=== PATIENT | male | born 1965 | race Caucasian/White ===

== ENCOUNTER 2016-11-06 01:54 | Inpatient (IN) | payer OTHER ==
[2016-11-06] MEDS ORDERED: ZOFRAN INJ 4 MG VIAL ONE ×6 (02:19→16:41)
[2016-11-06] MEDS ORDERED: ZOFRAN INJ 4 MG VIAL IVP ONE (02:23)
[2016-11-06] MEDS: NORMODYNE INJ 20 MG VIAL IVP PRN ×9 (02:27→04:56)
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
[2016-11-06] MEDS ORDERED: NITROSTAT SL ONE (03:55)
[2016-11-06] MEDS ORDERED: NITROSTAT SL PRN (03:57)
[2016-11-06] MEDS ORDERED: ZOFRAN INJ 4 MG VIAL 16 MG, ATIVAN INJ 2 MG VIAL 1 MG, DECADRON INJ 10 MG in NS 50 ML I... IV ONE (04:01)
[2016-11-06] MEDS ORDERED: DECADRON INJ ONE (04:03)
[2016-11-06] MEDS ORDERED: NS 50 ML IV 50 ML IV ONE ×2 (04:04→12:21)
[2016-11-06] MEDS ORDERED: NS 250 ML IV 250 ML IV ONE ×2 (04:04→06:45)
[2016-11-06] MEDS ORDERED: ATIVAN INJ 2 MG VIAL ONE ×2 (04:04→12:22)
[2016-11-06 06:32] LABS: BASOPHILS % (AUTO) 0.4 % (0.2-1.0); HEMATOCRIT 35.9 % (42.0-54.0); LYMPHOCYTES # (AUTO) 0.5 X10^3/uL (1.3-2.9); LYMPHOCYTES % (AUTO) 4.2 % (21.0-51.0); MEAN CORPUSCULAR HEMOGLOBIN 28.3 pg (27.0-34.0); MEAN CORPUSCULAR HGB CONC 33.6 g/dL (33.0-35.0); MEAN CORPUSCULAR VOLUME 84.2 fL (80.0-100.0); MEAN PLATELET VOLUME 7.7 fL (7.4-11.0); MONOCYTES # (AUTO) 0.1 x10^3/uL (0.3-0.8); NEUTROPHILS # (AUTO) 10.4 x10^3/uL (2.2-4.8); NEUTROPHILS % (AUTO) 94.4 % (42.0-75.0); PLATELET COUNT 289 X10^3/uL (150.0-450.0); RED BLOOD COUNT 4.26 X10^6/uL (4.7-6.0); RED CELL DISTRIBUTION WIDTH 13.9 % (11.6-16.5); WHITE BLOOD COUNT 11.1 X10^3/uL (3.6-10.0)
[2016-11-06] MEDS ORDERED: NORMODYNE INJ 100 MG VIAL ONE (06:45)
[2016-11-06 06:50] LABS: PLATELET MORPHOLOGY COMMENT NORMAL (NORMAL)
[2016-11-06 06:55] LABS: ALBUMIN 2.9 g/dL (3.4-5.0); CALCIUM 7.8 mg/dL (8.5-10.1); CARBON DIOXIDE 21.4 mmol/L (21-32); COR CA(FOR HYPOALB) 8.7 mg/dL (8.5-10.1); CREATININE 3.56 mg/dL (0.70-1.30); TOTAL PROTEIN 6.3 g/dL (6.4-8.2)
[2016-11-06] MEDS: NORMODYNE INJ 100 MG VIAL 250 MG in NS 250 ML IV 200 ML IV PRN ×6 (06:57→17:20)
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
[2016-11-06] MEDS: NS 1000 ML 1,000 ML IV SCH ×2 (08:00→20:05)
[2016-11-06] MEDS ORDERED: ZOFRAN INJ 4 MG VIAL IVP PRN (08:44)
[2016-11-06] MEDS ORDERED: GLUCOPHAGE PO SCH (09:00)
[2016-11-06] MEDS ORDERED: ZESTRIL TAB 20 MG ONE ×2 (09:33→19:39)
[2016-11-06] MEDS: ALBUMIN HUMAN 25%- 100ML 100 ML IV SCH (09:38)
[2016-11-06] MEDS: ZESTRIL TAB 20 MG PO SCH ×2 (09:39→20:00)
[2016-11-06 10:45] VITALS: BMI 27.4
[2016-11-06] MEDS ORDERED: ZOFRAN INJ 4 MG VIAL 16 MG, ATIVAN INJ 2 MG VIAL 1 MG in NS 50 ML IV 50 ML IV PRN (10:58)
[2016-11-06 11:01] LABS: BILIRUBIN,URINE NEGATIVE (NEGATIVE); BLOOD/HEMOGLOBIN,URINE 4+ (NEGATIVE); GLUCOSE, URINE 4+ (NEGATIVE); KETONES,URINE NEGATIVE (NEGATIVE); LEUKOCYTE ESTERASE ,URINE NEGATIVE (NEGATIVE); NITRITES,URINE NEGATIVE (NEGATIVE); PROTEIN,URINE 4+ (NEGATIVE); UROBILINOGEN,URINE NORMAL (NORMAL)
[2016-11-06 11:09] LABS: APPEARANCE,URINE CLEAR (CLEAR); BACTERIA,URINE TRACE /HPF (NEGATIVE); COLOR,URINE YELLOW (YELLOW); SQUAMOUS EPITHELIAL CELL,UR MODERATE /HPF (NEGATIVE)
[2016-11-06] MEDS: HumuLIN R SUBCUT PRN ×2 (12:06→16:44)
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
[2016-11-06 15:13] LABS: CKMB % 0.9 % (<4)
[2016-11-06 15:17] LABS: CREATINE KINASE MB 5.5 ng/mL (0-4.0)
[2016-11-06 15:18] LABS: TROPONIN I 1.83 ng/mL (0-1.5)
[2016-11-06] MEDS: ZOFRAN INJ 4 MG VIAL IVP PRN (16:46)
[2016-11-06 20:28] LABS: CKMB % 0.7 % (<4)
[2016-11-06 20:30] LABS: CREATINE KINASE MB 5.6 ng/mL (0-4.0); TROPONIN I 1.71 ng/mL (0-1.5)
[2016-11-06] MEDS ORDERED: NORVASC TAB 5 MG PO SCH (21:00)
[2016-11-06] MEDS: SNACK - Diabetic Appropriate PO SCH (21:36)
[2016-11-06 23:21] LABS: CKMB % 0.7 % (<4)
[2016-11-06 23:23] LABS: CREATINE KINASE MB 5.4 ng/mL (0-4.0); TROPONIN I 1.7 ng/mL (0-1.5)
[2016-11-07] MEDS: NS 1000 ML 1,000 ML IV SCH ×4 (01:20→20:20)
[2016-11-07 03:35] LABS: CKMB % 0.6 % (<4); TROPONIN I 1.49 ng/mL (0-1.5)
[2016-11-07 03:36] LABS: CREATINE KINASE MB 4.8 ng/mL (0-4.0)
[2016-11-07 05:23] LABS: HEMOGLOBIN A1C 7.8 % (4.5-6.2)
[2016-11-07] MEDS: NORMODYNE INJ 20 MG VIAL IVP PRN ×11 (05:25→17:32)
[2016-11-07 05:42] LABS: BASOPHILS % (AUTO) 0.2 % (0.2-1.0); HEMATOCRIT 32.3 % (42.0-54.0); HEMOGLOBIN 10.8 g/dL (13.5-18.0); LYMPHOCYTES # (AUTO) 0.8 X10^3/uL (1.3-2.9); LYMPHOCYTES % (AUTO) 5.7 % (21.0-51.0); MEAN CORPUSCULAR HEMOGLOBIN 28.4 pg (27.0-34.0); MEAN CORPUSCULAR HGB CONC 33.3 g/dL (33.0-35.0); MEAN CORPUSCULAR VOLUME 85.3 fL (80.0-100.0); MEAN PLATELET VOLUME 8.1 fL (7.4-11.0); MONOCYTES # (AUTO) 0.6 x10^3/uL (0.3-0.8); MONOCYTES % (AUTO) 4.3 % (0.0-13.0); NEUTROPHILS % (AUTO) 89.8 % (42.0-75.0); PLATELET COUNT 261 X10^3/uL (150.0-450.0); RED BLOOD COUNT 3.79 X10^6/uL (4.7-6.0); RED CELL DISTRIBUTION WIDTH 14.5 % (11.6-16.5); WHITE BLOOD COUNT 14.5 X10^3/uL (3.6-10.0)
[2016-11-07 06:05] LABS: CALCIUM 7.7 mg/dL (8.5-10.1); CARBON DIOXIDE 19.6 mmol/L (21-32); CKMB % 0.7 % (<4); COR CA(FOR HYPOALB) 8.5 mg/dL (8.5-10.1); CREATININE 3.64 mg/dL (0.70-1.30); TOTAL PROTEIN 5.9 g/dL (6.4-8.2); TROPONIN I 1.37 ng/mL (0-1.5)
[2016-11-07 06:20] LABS: CREATINE KINASE MB 5.3 ng/mL (0-4.0)
[2016-11-07] MEDS ORDERED: ZESTRIL TAB 20 MG ONE ×2 (08:25→20:04)
[2016-11-07] MEDS: ALBUMIN HUMAN 25%- 100ML 100 ML IV SCH (08:45)
[2016-11-07] MEDS: ZESTRIL TAB 20 MG PO SCH ×2 (08:45→20:13)
[2016-11-07] MEDS ORDERED: NORVASC TAB 5 MG PO ONE (09:07)
[2016-11-07 10:23] LABS: CKMB % 0.7 % (<4); TROPONIN I 1.29 ng/mL (0-1.5)
[2016-11-07 10:26] LABS: CREATINE KINASE MB 4.9 ng/mL (0-4.0)
[2016-11-07] MEDS: HumuLIN R SUBCUT PRN ×2 (11:28→16:33)
[2016-11-07] MEDS: ZOFRAN INJ 4 MG VIAL IVP PRN (13:35)
[2016-11-07] MEDS: NITRODUR PATCH 0.2 MG/HR TD SCH (14:08)
[2016-11-07] MEDS: CHECK PATCH XX SCH ×2 (14:09→20:15)
[2016-11-07 15:37] LABS: CKMB % 0.6 % (<4); TROPONIN I 1.31 ng/mL (0-1.5)
[2016-11-07 15:40] LABS: CREATINE KINASE MB 4.1 ng/mL (0-4.0)
--- NOTE | 2016-11-07 15:41 | PCM.PROG ---
Progress Note - Progress Note for Day of Date: 11/07/16 - Subjective Subjective: PATIENT RESTS IN BED. BLOOD PRESSURE CONTINUES TO BE ELEVATED THIS MORNING, 199/98, 202/102. PATIENT DENIES PREVIOUS RENAL FAILURE OR PROBLEMS IN THE PAST. HE HAS BEEN WEANED FROM LABETALOL DRIP. PATIENT DENIES CHEST PAIN. PATIENT CONTINUES ON IV FLUIDS FOR ACUTE RENAL FAILURE. CBC WNL EXCEPT: WBC 14.5, H/H 10.8/32.3. CMP WNL EXCEPT: CHL 110, CARBON DIOXIDE 805, BUN/CREAT 54/ 3.64, GFR 19, GLUCOSE 180, CALCIUM 7.7, HGB A1C 7.8, TOT PROTEIN 5.9, ALBUMIN 3.0. CARDIAC ENZYMES WNL EXCEPT: CREAT KINASE 759, CKMB 5.3. TROPONIN WAS SLIGHTLY ELEVATED AT 1.83 YESTERDAY BUT HAS NOW RETURNED TO NORMAL. URINE ACETONE SMALL. GLUCOSE HAS IMPROVED SINCE ADMISSION FROM 353 TO 180. WE WILL INCREASE NORVASC TO 10MG AT HS, START NITRODUR PATCH 0.2MG Q24H, AND CONTINUE TO MONITOR BLOOD PRESSURE. WE WILL CONTINUE TO MONITOR ON TELEMETRY AND FOLLOW UP WITH LABS IN AM. - Past Medical Family Social History Past Med/Fam/Surg Hx: No changes since H&P Allergies: Allergies Amoxicillin Allergy (Verified 11/06/16 01:58) Clavulanic Acid [From Augmentin] Allergy (Verified 11/06/16 01:58) - Review of Systems ROS: No change since H&P - Vital Signs and I&O's Vital Signs: Temperature 98.7 F Pulse Rate [Apical] 77 Respiratory Rate 21 Blood Pressure [Right Arm] 191/96 Blood Pressure [Left Arm] 183/100 O2 Sat by Pulse Oximetry 91 Intake and Output: Intake & Output 11/05/16 11/06/16 11/07/16 11/08/16 11:59 11:59 11:59 11:59 Intake Total 750 5301 Output Total 1125 Balance 750 4176 - Physical Exam Oriented: Normal, Time, Person, Place Eyes: Normal. negative: Blurred Vision, Diplopia, Discharge, Pain, Redness, Photophobia Ear: Normal. negative: Swelling, Ecchymosis, Hemotypanum, Abrasion, Laceration Nose: Normal. negative: Injected, Discharge, Blood Throat: Normal. negative: Tonsillar Hypertrophy, Red, Exudate Respiratory: Normal Cardiovascular: Normal. negative: Murmur, Edema : Normal. negative: Dysuria, Hematuria, Frequency, Discharge, Testicular Pain Auscultation: Bowel Sounds: Decreased. negative: Bruit Palpation: Normal. negative: Spleen Enlarged, Liver Enlarged, Mass Pulsatile Tenderness: Normal. negative: Rebound, Guarding, Rigidity Skin: Decreased Turgur. negative: Diaphoresis, Wound, Bruising, Ecchymosis Musculoskeletal: Normal Psychiatric: Normal Mood Description: Calm, Appropriate Affect: Normal Speech Pattern: Clear, Appropriate - Laboratory and Diagnostics Result Diagrams: 11/07/16 04:50 11/07/16 04:50 Labs: Laboratory WBC 14.5 X10^3/uL (3.6-10.0) H 11/07/16 04:50 RBC 3.79 X10^6/uL (4.7-6.0) L 11/07/16 04:50 Hgb 10.8 g/dL (13.5-18.0) L 11/07/16 04:50 Hct 32.3 % (42.0-54.0) L 11/07/16 04:50 MCV 85.3 fL (80.0-100.0) 11/07/16 04:50 MCH 28.4 pg (27.0-34.0) 11/07/16 04:50 MCHC 33.3 g/dL (33.0-35.0) 11/07/16 04:50 RDW 14.5 % (11.6-16.5) 11/07/16 04:50 Plt Count 261 X10^3/uL (150.0-450.0) 11/07/16 04:50 Plt Count Comment Adequate (ADEQUATE) 11/06/16 06:20 MPV 8.1 fL (7.4-11.0) 11/07/16 04:50 Neut % 89.8 % (42.0-75.0) H 11/07/16 04:50 Lymph % 5.7 % (21.0-51.0) L 11/07/16 04:50 [place] % 4.3 % (0.0-13.0) 11/07/16 04:50 Eos % 0.0 % (0.9-2.9) L 11/07/16 04:50 Baso % 0.2 % (0.2-1.0) 11/07/16 04:50 Neut # 13.0 x10^3/uL (2.2-4.8) H 11/07/16 04:50 Lymph # 0.8 X10^3/uL (1.3-2.9) L 11/07/16 04:50 [place] # 0.6 x10^3/uL (0.3-0.8) 11/07/16 04:50 Eos # 0.0 x10^3/uL (0.0-0.2) 11/07/16 04:50 Baso # 0.0 X10^3/uL (0.0-0.1) 11/07/16 04:50 Absolute Nucleated RBC 0.0 /100WBC 11/07/16 04:50 Total Counted 100 11/06/16 06:20 Neutrophils % (Manual) 92 % (39-76) H 11/06/16 06:20 Lymphocytes % (Manual) 7 % (13-43) L 11/06/16 06:20 Monocytes % (Manual) 1 % (4-9) L 11/06/16 06:20 Plt Morphology Comment Normal (NORMAL) 11/06/16 06:20 RBC Morphology Normal (NORMAL) 11/06/16 06:20 Sodium 145 mmol/L (136-145) 11/07/16 04:50 Corrected Sodium 147 mmol/L (136-145) H 11/07/16 04:50 Potassium 3.9 mmol/L (3.5-5.1) 11/07/16 04:50 Chloride 110 mmol/L (98-107) H 11/07/16 04:50 Carbon Dioxide 19.6 mmol/L (21-32) L 11/07/16 04:50 BUN 54 mg/dL (7-18) H 11/07/16 04:50 Creatinine 3.64 mg/dL (0.70-1.30) H 11/07/16 04:50 Est GFR (MDRD) Af Amer 23 (>60) L 11/07/16 04:50 Est GFR (MDRD) Non-Af 19 (>60) L 11/07/16 04:50 Glucose 180 mg/dL (65-99) H 11/07/16 04:50 Hemoglobin A1c 7.8 % (4.5-6.2) H 11/07/16 04:50 Calcium 7.7 mg/dL (8.5-10.1) L 11/07/16 04:50 Corrected Calcium 8.5 mg/dL (8.5-10.1) 11/07/16 04:50 Total Bilirubin 0.50 mg/dL (0.2-1.0) 11/07/16 04:50 AST 23 Units/L (15-37) 11/07/16 04:50 ALT 20 Units/L (12-78) 11/07/16 04:50 Alkaline Phosphatase 85 Units/L (46-116) 11/07/16 04:50 Creatine Kinase 752 Units/L (39-308) H 11/07/16 09:35 CK-MB (CK-2) 4.9 ng/mL (0-4.0) H* 11/07/16 09:35 CK/CKMB % Calc 0.7 % (<4) 11/07/16 09:35 Troponin I 1.29 ng/mL (0-1.5) 11/07/16 09:35 Total Protein 5.9 g/dL (6.4-8.2) L 11/07/16 04:50 Albumin 3.0 g/dL (3.4-5.0) L 11/07/16 04:50 Globulin 2.9 g/dL (2.5-4.5) 11/07/16 04:50 Albumin/Globulin Ratio 1.0 Ratio (1.1-2.1) L 11/07/16 04:50 Specimen Type Clean catch urine 11/06/16 10:44 Urine Color Yellow (YELLOW) 11/06/16 10:44 Urine Appearance Clear (CLEAR) 11/06/16 10:44 Urine pH 5.0 (5.0 - 8.0) 11/06/16 10:44 Ur Specific [place] 1.015 (1.000-1.030) 11/06/16 10:44 Urine Protein 4+ (NEGATIVE) 11/06/16 10:44 Urine Glucose (UA) 4+ (NEGATIVE) 11/06/16 10:44 Urine Ketones Negative (NEGATIVE) 11/06/16 10:44 Urine Occult Blood 4+ (NEGATIVE) 11/06/16 10:44 Urine Nitrite Negative (NEGATIVE) 11/06/16 10:44 Urine Bilirubin Negative (NEGATIVE) 11/06/16 10:44 Urine Acetone Small (NEGATIVE) 11/06/16 14:21 Urine Urobilinogen Normal (NORMAL) 11/06/16 10:44 Ur Leukocyte Esterase Negative (NEGATIVE) 11/06/16 10:44 Urine RBC 2-5 /HPF (NEGATIVE) 11/06/16 10:44 Urine WBC 0-3 /HPF (NEGATIVE) 11/06/16 10:44 Ur Squamous Epith Cells Moderate /HPF (NEGATIVE) 11/06/16 10:44 Urine Bacteria Trace /HPF (NEGATIVE) 11/06/16 10:44 Ur Culture Indicated? No/not indicated 11/06/16 10:44 - Plan (1) Hypertensive urgency, malignant Status: Acute Plan: START NITRODUR PATCH 0.2MG, INCREASE NORVASC TO 10MG HS, CONTINUE LISINOPRIL, MONITOR ON TELEMETRY, MONITOR BP. (2) Acute renal failure Status: Acute Qualifiers: Acute renal failure type: A Plan: CONTINUE IV FLUIDS, MONITOR LABS. (3) Nausea and vomiting Status: Acute Qualifiers: Vomiting type: cyclical vomiting Vomiting Intractability: intractable Qualified Code(s): G43.A1 - Cyclical vomiting, intractable Plan: CONTINUE IV FLUIDS, ZOFRAN COCKTAIL WITHOUT DECADRON, MONITOR. (4) Concussion Status: Acute Qualifiers: Encounter type: initial encounter Loss of consciousness presence/duration: without LOC Qualified Code(s): S06.0X0A - Concussion without loss of consciousness, initial encounter Plan: CONTINUE TO MONITOR NEURO STATUS. (5) Dehydration Status: Acute Plan: START IV FLUIDS AT 150MLS/HR, MONITOR LABS. (6) Diabetes type 2, uncontrolled Status: Chronic Qualifiers: Diabetes mellitus complication status: with hyperglycemia Diabetes mellitus complication detail: D Diabetic retinopathy severity: D Proliferative retinopathy type: P Diabetes mellitus macular edema: D Diabetes mellitus dedicated intermodal truck driver insulin use: without dedicated intermodal truck driver use Laterality: L Chronic kidney disease stage: C Qualified Code(s): E11.65 - Type 2 diabetes mellitus with hyperglycemia Plan: START OTBS ACHS, INSULIN R SLIDING SCALE, [place] DIET, MONITOR. (7) Multiple lacunar infarcts Status: Chronic
[2016-11-07] MEDS ORDERED: LEVAQUIN PREMIX IV 500 MG 500 MG/100 ML BAG IV SCH (17:00)
[2016-11-07] MEDS: SNACK - Diabetic Appropriate PO SCH (19:45)
[2016-11-07] MEDS: NORVASC TAB 10 MG PO SCH (20:13)
[2016-11-08] MEDS: NS 1000 ML 1,000 ML IV SCH (00:08)
[2016-11-08] MEDS ORDERED: MAALOX or MYLANTA PO PRN (00:08)
[2016-11-08] MEDS ORDERED: MORPHINE SULFATE INJ 2 MG IVP ONE (02:18)
[2016-11-08 03:07] LABS: CKMB % 0.5 % (<4); CREATINE KINASE MB 3.6 ng/mL (0-4.0); TROPONIN I 1.08 ng/mL (0-1.5)
[2016-11-08 06:37] LABS: ALBUMIN 3.1 g/dL (3.4-5.0); BASOPHILS % (AUTO) 0.2 % (0.2-1.0); CALCIUM 7.5 mg/dL (8.5-10.1); CARBON DIOXIDE 19.8 mmol/L (21-32); COR CA(FOR HYPOALB) 8.2 mg/dL (8.5-10.1); CREATININE 3.57 mg/dL (0.70-1.30); EOSINOPHILS # (AUTO) 0.1 x10^3/uL (0.0-0.2); EOSINOPHILS % (AUTO) 0.4 % (0.9-2.9); HEMATOCRIT 34.6 % (42.0-54.0); HEMOGLOBIN 11.5 g/dL (13.5-18.0); LYMPHOCYTES # (AUTO) 1.1 X10^3/uL (1.3-2.9); LYMPHOCYTES % (AUTO) 7.1 % (21.0-51.0); MEAN CORPUSCULAR HEMOGLOBIN 28.4 pg (27.0-34.0); MEAN CORPUSCULAR HGB CONC 33.3 g/dL (33.0-35.0); MEAN CORPUSCULAR VOLUME 85.5 fL (80.0-100.0); MEAN PLATELET VOLUME 8.2 fL (7.4-11.0); MONOCYTES # (AUTO) 0.7 x10^3/uL (0.3-0.8); MONOCYTES % (AUTO) 4.8 % (0.0-13.0); NEUTROPHILS # (AUTO) 13.4 x10^3/uL (2.2-4.8); NEUTROPHILS % (AUTO) 87.5 % (42.0-75.0); PLATELET COUNT 268 X10^3/uL (150.0-450.0); RED BLOOD COUNT 4.05 X10^6/uL (4.7-6.0); RED CELL DISTRIBUTION WIDTH 14.4 % (11.6-16.5); WHITE BLOOD COUNT 15.3 X10^3/uL (3.6-10.0)
[2016-11-08] MEDS ORDERED: MORPHINE SULFATE INJ 2 MG ONE (08:03)
[2016-11-08] MEDS ORDERED: ZESTRIL TAB 20 MG ONE ×2 (08:04→19:44)
[2016-11-08] MEDS: ZESTRIL TAB 20 MG PO SCH ×2 (08:08→20:15)
[2016-11-08] MEDS: NITRODUR PATCH 0.2 MG/HR TD SCH (08:12)
[2016-11-08] MEDS: ALBUMIN HUMAN 25%- 100ML 100 ML IV SCH (08:13)
[2016-11-08] MEDS ORDERED: MORPHINE SULFATE INJ 2 MG IVP PRN (08:20)
[2016-11-08] MEDS: LEVAQUIN PREMIX IV 250 MG 250 MG/50 ML BAG IV SCH (09:31)
[2016-11-08] MEDS: CHECK PATCH XX SCH ×2 (09:32→20:14)
[2016-11-08] MEDS: NITRODUR PATCH 0.4 MG/HR TD SCH (09:50)
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
--- NOTE | 2016-11-08 14:48 | PCM.PROG ---
Progress Note - Progress Note for Day of Date: 11/08/16 - Subjective Subjective: BLOOD PRESSURE HAS IMPROVED SINCE STARTING NITRO PATCH AND INCREASING NORVASC, 176/95. AT BEDSIDE. PATIENT HAD AN EPISODE OF CHEST PAIN THROUGH THE NIGHT. MORPHINE IV WAS GIVEN WITH RELIEF. PATIENT CONTINUES ON IV FLUIDS FOR ACUTE RENAL FAILURE. WE DISCUSS FOLLOWING UP WITH [employer] WORK[employer] HELPER ON DISCHARGE DUE TO POSSIBLE PERMANENT KIDNEY DAMAGE. HE AND HIS VOICE UNDERSTANDING. PATIENT HAS 2+ PITTING EDEMA TO LOWER EXTREMITIES. PATIENT IS REPORTING SOME SHORTNESS OF BREATH TODAY AND HAS SOME INTERMITTENT CONFUSION. CBC WNL EXCEPT: WBC 15.3, H/H 11.5/34.6. CMP WNL EXCEPT: CHL 109, CARBON DIOXIDE 19.8, BUN/CREAT 58/3.57, GFR 19, GLUCOSE 119, CALCIUM 7.5, TOT PROTEIN 6.0, ALBUMIN 3.1. URINE ACETONE NEGATIVE. WE WILL INCREASE NITRODUR PATCH TO 0.4MG, CONTINUE NORVASC, LISINOPRIL, AND CONTINUE TO MONITOR BLOOD PRESSURE. WE WILL DISCONTINUE IV FLUIDS, OBTAIN AN MRI OF BRAIN AND A RENAL ULTRASOUND, CONTINUE TO MONITOR ON TELEMETRY, AND FOLLOW UP WITH LABS IN AM. - Past Medical Family Social History Past Med/Fam/Surg Hx: No changes since H&P Allergies: Allergies Amoxicillin Allergy (Verified 11/06/16 01:58) Clavulanic Acid [From Augmentin] Allergy (Verified 11/06/16 01:58) - Review of Systems ROS: No change since H&P - Vital Signs and I&O's Vital Signs: Temperature 99.2 F Pulse Rate [Apical] 81 Respiratory Rate 22 Blood Pressure [Right Arm] 154/103 Blood Pressure [Left Arm] 170/90 O2 Sat by Pulse Oximetry 93 Intake and Output: Intake & Output 11/06/16 11/07/16 11/08/16 11/09/16 11:59 11:59 11:59 11:59 Intake Total 750 5301 4860 Output Total 1125 1400 Balance 750 4176 3460 - Physical Exam Oriented: Normal, Time, Person, Place Eyes: Normal. negative: Blurred Vision, Diplopia, Discharge, Pain, Redness, Photophobia Ear: Normal. negative: Swelling, Ecchymosis, Hemotypanum, Abrasion, Laceration Nose: Normal. negative: Injected, Discharge, Blood Throat: Normal. negative: Tonsillar Hypertrophy, Red, Exudate Respiratory: Diminished Cardiovascular: Normal, Edema (2+ Pitting BLE). negative: Murmur : Normal. negative: Dysuria, Hematuria, Frequency, Discharge, Testicular Pain Auscultation: Bowel Sounds: Decreased. negative: Bruit Palpation: Normal. negative: Spleen Enlarged, Liver Enlarged, Mass Pulsatile Tenderness: Normal. negative: Rebound, Guarding, Rigidity Skin: Normal. negative: Diaphoresis, Wound, Bruising, Ecchymosis Musculoskeletal: Normal Psychiatric: Normal Mood Description: Calm, Appropriate Affect: Normal Speech Pattern: Clear, Appropriate - Laboratory and Diagnostics Result Diagrams: 11/08/16 04:45 11/08/16 04:45 Labs: Laboratory WBC 15.3 X10^3/uL (3.6-10.0) H 11/08/16 04:45 RBC 4.05 X10^6/uL (4.7-6.0) L 11/08/16 04:45 Hgb 11.5 g/dL (13.5-18.0) L 11/08/16 04:45 Hct 34.6 % (42.0-54.0) L 11/08/16 04:45 MCV 85.5 fL (80.0-100.0) 11/08/16 04:45 MCH 28.4 pg (27.0-34.0) 11/08/16 04:45 MCHC 33.3 g/dL (33.0-35.0) 11/08/16 04:45 RDW 14.4 % (11.6-16.5) 11/08/16 04:45 Plt Count 268 X10^3/uL (150.0-450.0) 11/08/16 04:45 Plt Count Comment Adequate (ADEQUATE) 11/06/16 06:20 MPV 8.2 fL (7.4-11.0) 11/08/16 04:45 Neut % 87.5 % (42.0-75.0) H 11/08/16 04:45 Lymph % 7.1 % (21.0-51.0) L 11/08/16 04:45 [place] % 4.8 % (0.0-13.0) 11/08/16 04:45 Eos % 0.4 % (0.9-2.9) L 11/08/16 04:45 Baso % 0.2 % (0.2-1.0) 11/08/16 04:45 Neut # 13.4 x10^3/uL (2.2-4.8) H 11/08/16 04:45 Lymph # 1.1 X10^3/uL (1.3-2.9) L 11/08/16 04:45 [place] # 0.7 x10^3/uL (0.3-0.8) 11/08/16 04:45 Eos # 0.1 x10^3/uL (0.0-0.2) 11/08/16 04:45 Baso # 0.0 X10^3/uL (0.0-0.1) 11/08/16 04:45 Absolute Nucleated RBC 0.0 /100WBC 11/08/16 04:45 Total Counted 100 11/06/16 06:20 Neutrophils % (Manual) 92 % (39-76) H 11/06/16 06:20 Lymphocytes % (Manual) 7 % (13-43) L 11/06/16 06:20 Monocytes % (Manual) 1 % (4-9) L 11/06/16 06:20 Plt Morphology Comment Normal (NORMAL) 11/06/16 06:20 RBC Morphology Normal (NORMAL) 11/06/16 06:20 Sodium 143 mmol/L (136-145) 11/08/16 04:45 Corrected Sodium 143 mmol/L (136-145) 11/08/16 04:45 Potassium 3.7 mmol/L (3.5-5.1) 11/08/16 04:45 Chloride 109 mmol/L (98-107) H 11/08/16 04:45 Carbon Dioxide 19.8 mmol/L (21-32) L 11/08/16 04:45 BUN 58 mg/dL (7-18) H 11/08/16 04:45 Creatinine 3.57 mg/dL (0.70-1.30) H 11/08/16 04:45 Est GFR (MDRD) Af Amer 23 (>60) L 11/08/16 04:45 Est GFR (MDRD) Non-Af 19 (>60) L 11/08/16 04:45 Glucose 119 mg/dL (65-99) H 11/08/16 04:45 Hemoglobin A1c 7.8 % (4.5-6.2) H 11/07/16 04:50 Calcium 7.5 mg/dL (8.5-10.1) L 11/08/16 04:45 Corrected Calcium 8.2 mg/dL (8.5-10.1) L 11/08/16 04:45 Total Bilirubin 0.60 mg/dL (0.2-1.0) 11/08/16 04:45 AST 21 Units/L (15-37) 11/08/16 04:45 ALT 19 Units/L (12-78) 11/08/16 04:45 Alkaline Phosphatase 87 Units/L (46-116) 11/08/16 04:45 Creatine Kinase 676 Units/L (39-308) H 11/08/16 02:25 CK-MB (CK-2) 3.6 ng/mL (0-4.0) 11/08/16 02:25 CK/CKMB % Calc 0.5 % (<4) 11/08/16 02:25 Troponin I 1.08 ng/mL (0-1.5) 11/08/16 02:25 Total Protein 6.0 g/dL (6.4-8.2) L 11/08/16 04:45 Albumin 3.1 g/dL (3.4-5.0) L 11/08/16 04:45 Globulin 2.9 g/dL (2.5-4.5) 11/08/16 04:45 Albumin/Globulin Ratio 1.1 Ratio (1.1-2.1) 11/08/16 04:45 Specimen Type Clean catch urine 11/06/16 10:44 Urine Color Yellow (YELLOW) 11/06/16 10:44 Urine Appearance Clear (CLEAR) 11/06/16 10:44 Urine pH 5.0 (5.0 - 8.0) 11/06/16 10:44 Ur Specific [place] 1.015 (1.000-1.030) 11/06/16 10:44 Urine Protein 4+ (NEGATIVE) 11/06/16 10:44 Urine Glucose (UA) 4+ (NEGATIVE) 11/06/16 10:44 Urine Ketones Negative (NEGATIVE) 11/06/16 10:44 Urine Occult Blood 4+ (NEGATIVE) 11/06/16 10:44 Urine Nitrite Negative (NEGATIVE) 11/06/16 10:44 Urine Bilirubin Negative (NEGATIVE) 11/06/16 10:44 Urine Acetone Negative (NEGATIVE) 11/08/16 04:58 Urine Urobilinogen Normal (NORMAL) 11/06/16 10:44 Ur Leukocyte Esterase Negative (NEGATIVE) 11/06/16 10:44 Urine RBC 2-5 /HPF (NEGATIVE) 11/06/16 10:44 Urine WBC 0-3 /HPF (NEGATIVE) 11/06/16 10:44 Ur Squamous Epith Cells Moderate /HPF (NEGATIVE) 11/06/16 10:44 Urine Bacteria Trace /HPF (NEGATIVE) 11/06/16 10:44 Ur Culture Indicated? No/not indicated 11/06/16 10:44 - Plan (1) Hypertensive urgency, malignant Status: Acute Plan: INCREASE NITRODUR PATCH TO 0.4MG, CONTINUE NORVASC, LISINOPRIL, MONITOR ON TELEMETRY, MONITOR BP. (2) Acute renal failure Status: Acute Qualifiers: Acute renal failure type: A Plan: RENAL ULTRASOUND, CONTINUE TO MONITOR LABS. (3) Confusion Status: Acute Plan: OBTAIN MRI OF BRAIN TODAY, MONITOR. (4) Nausea and vomiting Status: Acute Qualifiers: Vomiting type: cyclical vomiting Vomiting Intractability: intractable Qualified Code(s): G43.A1 - Cyclical vomiting, intractable Plan: CONTINUE ZOFRAN, MONITOR. (5) Concussion Status: Acute Qualifiers: Encounter type: initial encounter Loss of consciousness presence/duration: without LOC Qualified Code(s): S06.0X0A - Concussion without loss of consciousness, initial encounter Plan: CONTINUE TO MONITOR NEURO STATUS. (6) Dehydration Status: Acute Plan: CONTINUE TO MONITOR. (7) Diabetes type 2, uncontrolled Status: Chronic Qualifiers: Diabetes mellitus complication status: with hyperglycemia Diabetes mellitus complication detail: D Diabetic retinopathy severity: D Proliferative retinopathy type: P Diabetes mellitus macular edema: D Diabetes mellitus mcc insulin use: without mcc use Laterality: L Chronic kidney disease stage: C Qualified Code(s): E11.65 - Type 2 diabetes mellitus with hyperglycemia Plan: CONTINUE OTBS ACHS, INSULIN R SLIDING SCALE, [place] DIET, MONITOR. (8) Multiple lacunar infarcts Status: Chronic
--- NOTE | 2016-11-08 16:26 | US ---
STUDY: RENAL ULTRASOUND History: Acute renal failure. Comparison: None. Technique: Multiple [place]ak scale and color flow Doppler images of the kidneys were obtained. The ronit on of the urinary bladder was evaluated. Findings: The right kidney is normal in size and echotexture measuring 11.4 x 5.3 x 6.8 cm. Right renal kevin x measures 1.3 cm. There is no evidence of mass, nephrolithiasis, or hydronephrosis. The left kidney is normal in size and echotexture measuring 12.2 x 6.0 x 5.5 cm. Left renal cortex m easures 1.2 cm. There is no evidence of mass, nephrolithiasis, or hydronephrosis. Color flow imaging shows normal arterial and venous blood flow to and from both kidneys. The urinary bladder is grossly unremarkable. IMPRESSION: 1. Unremarkable ultrasound evaluation of the kidneys. Reported By:
[2016-11-08] MEDS: PROTONIX INJ 40 MG VIAL IVP SCH ×2 (18:52→20:15)
[2016-11-08] MEDS: SNACK - Diabetic Appropriate PO SCH (20:13)
[2016-11-08] MEDS: NORVASC TAB 10 MG PO SCH (20:15)
[2016-11-09 05:41] LABS: BASOPHILS % (AUTO) 0.2 % (0.2-1.0); EOSINOPHILS # (AUTO) 0.1 x10^3/uL (0.0-0.2); EOSINOPHILS % (AUTO) 0.6 % (0.9-2.9); HEMATOCRIT 33.4 % (42.0-54.0); HEMOGLOBIN 11.2 g/dL (13.5-18.0); LYMPHOCYTES # (AUTO) 0.9 X10^3/uL (1.3-2.9); LYMPHOCYTES % (AUTO) 7.6 % (21.0-51.0); MEAN CORPUSCULAR HEMOGLOBIN 28.3 pg (27.0-34.0); MEAN CORPUSCULAR HGB CONC 33.5 g/dL (33.0-35.0); MEAN CORPUSCULAR VOLUME 84.5 fL (80.0-100.0); MEAN PLATELET VOLUME 8.2 fL (7.4-11.0); MONOCYTES # (AUTO) 0.8 x10^3/uL (0.3-0.8); MONOCYTES % (AUTO) 6.9 % (0.0-13.0); NEUTROPHILS # (AUTO) 10.4 x10^3/uL (2.2-4.8); NEUTROPHILS % (AUTO) 84.7 % (42.0-75.0); PLATELET COUNT 231 X10^3/uL (150.0-450.0); RED BLOOD COUNT 3.95 X10^6/uL (4.7-6.0); WHITE BLOOD COUNT 12.3 X10^3/uL (3.6-10.0)
[2016-11-09 06:23] LABS: ALBUMIN 2.9 g/dL (3.4-5.0); CALCIUM 7.5 mg/dL (8.5-10.1); CARBON DIOXIDE 19.3 mmol/L (21-32); COR CA(FOR HYPOALB) 8.4 mg/dL (8.5-10.1); CREATININE 3.59 mg/dL (0.70-1.30)
[2016-11-09] MEDS ORDERED: ZESTRIL TAB 20 MG ONE ×2 (08:35→20:12)
[2016-11-09] MEDS: ALBUMIN HUMAN 25%- 100ML 100 ML IV SCH (09:04)
[2016-11-09] MEDS: CHECK PATCH XX SCH ×2 (09:05→20:22)
[2016-11-09] MEDS: NITRODUR PATCH 0.4 MG/HR TD SCH (09:05)
[2016-11-09] MEDS: PROTONIX INJ 40 MG VIAL IVP SCH ×2 (09:06→20:22)
[2016-11-09] MEDS: ZESTRIL TAB 20 MG PO SCH ×2 (09:07→20:21)
[2016-11-09] MEDS ORDERED: THORAZINE INJ 25 MG AMP IM PRN (11:12)
[2016-11-09] MEDS: APRESOLINE TAB 25 MG PO SCH ×2 (14:15→21:04)
--- NOTE | 2016-11-09 14:38 | RAD ---
HISTORY: Hypertension Study: Single view of the chest. Comparison: 11/06/2016 Findings: The cardiomediastinal silhouette is normal. No focal consolidations, pleural effusions or pneumothor ax. Osseous structures demonstrate no acute abnormality. IMPRESSION: 1. No acute cardiopulmonary process. Reported By:
[2016-11-09] MEDS: SNACK - Diabetic Appropriate PO SCH (20:04)
[2016-11-09] MEDS: NORVASC TAB 10 MG PO SCH (20:21)
[2016-11-10 05:11] LABS: BASOPHILS % (AUTO) 0.4 % (0.2-1.0); EOSINOPHILS # (AUTO) 0.3 x10^3/uL (0.0-0.2); EOSINOPHILS % (AUTO) 2.8 % (0.9-2.9); HEMATOCRIT 31.9 % (42.0-54.0); HEMOGLOBIN 10.7 g/dL (13.5-18.0); LYMPHOCYTES % (AUTO) 10.6 % (21.0-51.0); MEAN CORPUSCULAR HEMOGLOBIN 28.5 pg (27.0-34.0); MEAN CORPUSCULAR HGB CONC 33.5 g/dL (33.0-35.0); MEAN CORPUSCULAR VOLUME 85.1 fL (80.0-100.0); MEAN PLATELET VOLUME 8.6 fL (7.4-11.0); MONOCYTES # (AUTO) 0.6 x10^3/uL (0.3-0.8); MONOCYTES % (AUTO) 6.4 % (0.0-13.0); NEUTROPHILS # (AUTO) 7.2 x10^3/uL (2.2-4.8); NEUTROPHILS % (AUTO) 79.8 % (42.0-75.0); PLATELET COUNT 199 X10^3/uL (150.0-450.0); RED BLOOD COUNT 3.74 X10^6/uL (4.7-6.0); RED CELL DISTRIBUTION WIDTH 13.6 % (11.6-16.5)
[2016-11-10 05:18] LABS: ALANINE AMINOTRANSFERASE 16 Units/L (12-78); ALBUMIN 2.7 g/dL (3.4-5.0); ALKALINE PHOSPHATASE 74 Units/L (46-116); ASPARTATE AMINO TRANSFERASE 15 Units/L (15-37); BLOOD UREA NITROGEN 70 mg/dL (7-18); CALCIUM 7.5 mg/dL (8.5-10.1); CARBON DIOXIDE 19.9 mmol/L (21-32); CHLORIDE 107 mmol/L (98-107); COR CA(FOR HYPOALB) 8.5 mg/dL (8.5-10.1); CREATININE 3.91 mg/dL (0.70-1.30); GLUCOSE 96 mg/dL (65-99); SODIUM 141 mmol/L (136-145); TOTAL PROTEIN 5.4 g/dL (6.4-8.2); eGFR BLACK RACES 21 (>60); eGFR NON BLACK RACES 17 (>60)
[2016-11-10] MEDS: APRESOLINE TAB 25 MG PO SCH ×3 (05:58→21:04)
[2016-11-10] MEDS ORDERED: ZESTRIL TAB 20 MG ONE ×2 (08:09→20:23)
[2016-11-10] MEDS: NITRODUR PATCH 0.4 MG/HR TD SCH (08:22)
[2016-11-10] MEDS: LEVAQUIN PREMIX IV 250 MG 250 MG/50 ML BAG IV SCH (08:24)
[2016-11-10] MEDS: ZOFRAN INJ 4 MG VIAL IVP PRN (08:25)
[2016-11-10] MEDS: PROTONIX INJ 40 MG VIAL IVP SCH ×2 (08:25→20:32)
[2016-11-10] MEDS: ALBUMIN HUMAN 25%- 100ML 100 ML IV SCH (08:25)
[2016-11-10] MEDS: ZESTRIL TAB 20 MG PO SCH ×2 (09:54→20:31)
[2016-11-10] MEDS: CHECK PATCH XX SCH ×2 (09:54→20:30)
[2016-11-10] MEDS: NS 1000 ML 1,000 ML IV SCH ×2 (11:31→23:16)
--- NOTE | 2016-11-10 14:27 | RAD ---
HISTORY: 51-year-old male with shortness of breath. Study: Single frontal view of the chest. Comparison: Chest radiograph November 09, 2016. Findings: The trachea is midline. The cardiac silhouette is stably enlarged. Patient is slightly rotated to the left. Mild perihilar airspace opacities without other focal consolidation, effusion or pneumotho rax. The bony thorax is unremarkable. IMPRESSION: 1. Mild perihilar airspace opacity that may be secondary to patient positioning, however, underlyin g infectious process not excluded. Correlate clinically. Reported By:
[2016-11-10] MEDS ORDERED: MILK OF MAGNESIA PO PRN (20:07)
[2016-11-10] MEDS ORDERED: COLACE CAP 100 MG PO PRN (20:07)
[2016-11-10] MEDS: SNACK - Diabetic Appropriate PO SCH (20:30)
[2016-11-10] MEDS: NORVASC TAB 10 MG PO SCH (20:31)
[2016-11-11] MEDS: NS 1000 ML 1,000 ML IV SCH (02:31)
[2016-11-11] MEDS: APRESOLINE TAB 25 MG PO SCH (05:20)
[2016-11-11 06:12] LABS: BASOPHILS # (AUTO) 0.1 X10^3/uL (0.0-0.1); BASOPHILS % (AUTO) 0.6 % (0.2-1.0); EOSINOPHILS # (AUTO) 0.4 x10^3/uL (0.0-0.2); EOSINOPHILS % (AUTO) 3.9 % (0.9-2.9); HEMATOCRIT 32.6 % (42.0-54.0); HEMOGLOBIN 11.2 g/dL (13.5-18.0); LYMPHOCYTES # (AUTO) 0.8 X10^3/uL (1.3-2.9); LYMPHOCYTES % (AUTO) 8.9 % (21.0-51.0); MEAN CORPUSCULAR HEMOGLOBIN 28.9 pg (27.0-34.0); MEAN CORPUSCULAR HGB CONC 34.3 g/dL (33.0-35.0); MEAN CORPUSCULAR VOLUME 84.4 fL (80.0-100.0); MEAN PLATELET VOLUME 8.6 fL (7.4-11.0); MONOCYTES # (AUTO) 0.7 x10^3/uL (0.3-0.8); MONOCYTES % (AUTO) 7.7 % (0.0-13.0); NEUTROPHILS # (AUTO) 7.5 x10^3/uL (2.2-4.8); NEUTROPHILS % (AUTO) 78.9 % (42.0-75.0); PLATELET COUNT 240 X10^3/uL (150.0-450.0); RED BLOOD COUNT 3.86 X10^6/uL (4.7-6.0); WHITE BLOOD COUNT 9.5 X10^3/uL (3.6-10.0)
[2016-11-11 06:34] LABS: ALBUMIN 2.9 g/dL (3.4-5.0); CALCIUM 7.9 mg/dL (8.5-10.1); CARBON DIOXIDE 19.1 mmol/L (21-32); COR CA(FOR HYPOALB) 8.8 mg/dL (8.5-10.1); CREATININE 4.19 mg/dL (0.70-1.30); TOTAL PROTEIN 5.8 g/dL (6.4-8.2)
--- NOTE | 2016-11-11 07:26 | RAD ---
HISTORY: Hypertension, shortness of breath Study: Single-view chest, done portably Comparison: November 10, 2016. Technique: patient is again rotated towards the left. Findings: Cardiac monitoring electrodes are noted on the chest. The trachea is midline. There is cardiomegaly with increased pulmonary vascular congestion. The bilateral perihilar of edema or infiltrate appear to be improved compared to prior studies. No effusion or pneumothorax is seen. Osseous structures ar e intact. IMPRESSION: Cardiomegaly with pulmonary vascular congestion. There is some improved aeration involving the perih ilar regions bilaterally. Reported By:
[2016-11-11] MEDS ORDERED: ZESTRIL TAB 20 MG ONE (07:53)
[2016-11-11] MEDS: PROTONIX INJ 40 MG VIAL IVP SCH (08:05)
[2016-11-11] MEDS: ZESTRIL TAB 20 MG PO SCH (08:05)
[2016-11-11] MEDS: ALBUMIN HUMAN 25%- 100ML 100 ML IV SCH (08:06)
[2016-11-11] MEDS: NITRODUR PATCH 0.4 MG/HR TD SCH (08:06)
[2016-11-11] MEDS: CHECK PATCH XX SCH (08:08)
[2016-11-11 10:18] VITALS: BP 148/80
== END 2016-11-11 13:15 | disposition home or self-care (01) | DRG 305 ==
LOC: ER 02:06 → ICU 07:07
PROVIDERS: ADMIT Internal Medicine; ATTEND Internal Medicine
DX: I16.0 Hypertensive urgency (principal); S06.0X0A Concussion without loss of consciousness, initial encounter; V49.88XA Car occupant (driver) (passenger) injured in other specified transport accidents, initial encounter; Y92.488 Other paved roadways as the place of occurrence of the external cause; G43.A1 Cyclical vomiting, in migraine, intractable; E86.0 Dehydration; N17.8 Other acute kidney failure; R94.31 Abnormal electrocardiogram [ECG] [EKG]; E11.65 Type 2 diabetes mellitus with hyperglycemia
CPT/HCPCS: 36415; 70450; 70553; 71010; 76770; 80053; 81001; 82009; 82550; 82553; 82947; 83036; 84484; 85025; 93005; 96365; 96374; 96375; 99284; A4222; C9113; P9047; J1100; J1815; J1956; J2060; J2270; J2405; J3230; J3490

== ENCOUNTER → 2017-11-24 | Outpatient (CLI) | payer SELFPAY ==
--- NOTE | 2017-11-24 11:00 | CT ---
HISTORY: Headaches and nausea Study: CT head without contrast Comparison: MRI brain performed on 11/08/2016 Technique: Multiple axial images of the brain were obtained from the skullbase to the vertex. Reformatted christianson l and sagittal planes were produced. Findings: Imaging of the brain demonstrates no intracranial hemorrhage, mass effect, or midline shift. No extra -axial fluid collection is identified. There is no CT evidence to suggest acute or early subacute inf arct. Global atrophy is noted with mild ex vacuo dilatation of the ventricles. There are low attenuat ing foci within the periventricular and deep white matter, findings most consistent with chronic smal l vessel disease. Multiple prior remote infarcts are identified within the corpus callosum, periventr icular white matter, bilateral basal ganglia, and left thalamus. The basilar cisterns are patent. The bony structures are intact. IMPRESSION: 1. No acute intracranial process evident 2. Chronic small vessel disease and multiple prior remote infarcts. Reported By:
== END ==
LOC: RAD 10:04
PROVIDERS: ATTEND Internal Medicine
DX: R51 Headache (principal); G44.211 Episodic tension-type headache, intractable
CPT/HCPCS: 70450